=== PATIENT | male | born 2000 | race Caucasian/White ===

== ENCOUNTER 2023-12-26 06:36 | Emergency (ER) | payer OTHER, SELFPAY ==
[2023-12-26 06:38] VITALS: BP 148/95
[2023-12-26 07:30] VITALS: BP 133/87
[2023-12-26] MEDS: ZOFRAN 4 MG IV (07:50)
[2023-12-26] MEDS: TORADOL 30 MG IV (07:50)
[2023-12-26] MEDS: NSS 1000 IV (07:51)
--- NOTE | 2023-12-26 07:55 | ED.GENMED ---
History of Present Illness
General
Chief Complaint: Male Genito-Urinary Symptoms
Source: patient
Time Seen by Provider: 12/26/23 07:03
History of Present Illness
History of Present Illness:
23-year-old male with no significant past medical history presenting to the emergency department for evaluation after awakening around 4 AM and noticed he was having some pain in the left lower part of his groin going into the left testicle,
accompanied with multiple episodes of vomiting (patient estimates about 5), persistent nausea but no other symptoms. Patient states the pain is mildly improved, took 1 dose of Advil with some relief. Denies any fevers/chills or rigors, urinary
frequency/urgency/dysuria/hematuria. Denies any history of similar. Patient's mother notes that she has a significant history for kidney stones. Patient denies ever being sexually active and has no concern for STI. Denies any urethral discharge,
testicular edema or erythema.
Past History
Past History
ED Past Medical History: None
ED Past Surgical History: None
Social History
Tobacco: Non-smoker
Alcohol: None
Drug: None
Personal: Single
Living: with family
Review of Systems
Review of Systems
All Other Systems: ROS reviewed and negative except as documented in HPI and ROS
Phy Exam
Physical Exam
Physical Exam:
GENERAL: Alert , in no apparent distress
EYE: clear conjunctiva b/l
HEAD: NCAT
ENT: mmm.
ABDOMEN: Soft, without focal tenderness, no r/g, no cvat, negative Camargo sign, no tenderness at McBurney's point
GENITOURINARY: no testicular edema, erythema, tenderness. no hernia. no epidydimal ttp, (+)cremasteric reflex b/l, no lesions/sores
NEUROLOGICAL: Alert and oriented
SKIN: Warm and dry, skin intact.
MUSCULOSKELETAL: No edema, well perfused.
PSYCH: Normal and appropriate interaction.
Scores
Heart Failure Risk
Heart Failure Risk Score: Not Applicable
Heart Score for Chest Pain Patients
STEMI patient?: Not applicable
Withdrawal Assessment of Alcohol
Withdrawal Assessment Completed?: Not applicable
Course
Orders/Labs/Results
Orders:
Orders
12/26/23 07:34
CT Abd/pel Without Iv Or Oral Urgent
Comment:
Reason For Exam: left lower abd/testicular pain
0.9% Sodium Chloride 1000 ml [Nss] 1,000 ml IV BOLUS
Ketorolac [Toradol] 30 mg IV NOW STA
Ondansetron Injectable [Zofran] 4 mg IV NOW STA
12/26/23 07:45
CMP [Comprehensive Metabolic Panel] Urgent
Complete Blood Count/With Diff Urgent
Urinalysis Reflex To Culture Urgent
Date Specimen was Collected: 12/26/23
Time Specimen was Collected: 07:43
Urine Microscopic Reflex Cult Urgent
Chlamydia/GC by PCR Urgent
MARVIN Source: Urine
Specimen Description:
Source:: URINE
Date Specimen was Collected: 12/26/23
Time Specimen was Collected: 07:43
Abnormal Lab Results
12/26/23
07:45
WBC 14.5 H 10^3/uL
(4.8-10.8)
MCV 79.2 L fL
(80.0-94.0)
Abs Immat Gran (auto) 0.1 H 10^3/uL
(0-0.05)
Absolute Neuts (auto) 12.0 H 10^3/uL
(1.4-6.5)
Absolute Monos (auto) 0.8 H 10^3/uL
(0.1-0.6)
Immature Gran % 0.6 H %
(0-0.5)
Neutrophils % 82.4 H %
(42.2-75.2)
Lymphocytes % 10.5 L %
(20.5-51.1)
Glucose 141 H mg/dl
(70-99)
Urine Ketones Trace A
(Negative)
Ur Occult Blood Reflex 4+ A
(Negative)
Leukocyte Esterase Rfl Trace A
(Negative)
Urine RBC 50-60 A /HPF
(0-2)
12/26/23 07:45
12/26/23 07:45
Vital Signs
Initial and Last Documented VS:
Initial Vital Signs
Temp Pulse Resp BP Pulse Ox
97.9 F 70 17 148/95 99
12/26/23 06:38 12/26/23 06:38 12/26/23 06:38 12/26/23 06:38 12/26/23 06:38
Last Documented Vital Signs
Temp Pulse Resp BP Pulse Ox
97.9 F 68 14 106/57 98
12/26/23 06:38 12/26/23 08:15 12/26/23 08:15 12/26/23 09:00 12/26/23 09:30
MDM/Problems Addressed
Differential Diagnosis Includes:
renal/ureteral colic, less concern for UTI/testicular torsion/epidydimitis
MDM/Problems Addressed:
23-year-old male present emergency department for sudden onset pain in the left groin accompanied with nausea and vomiting. Pain and nausea somewhat improved although still present. Exam seems to be most consistent with a renal/ureteral colic.
Considered torsion/epididymitis however based off exam I am less concerned for this as a diagnosis. Will order CT scan to further evaluate. Toradol, Zofran and IV fluids ordered for symptomatic relief. Reassessment following
*Radiology
Radiology exam reviewed: radiology read reviewed
*Pulse Oximetry
Patient hypoxic: no
*Critical Care Note
Total Time (30-74mins, 75-104mins- exclusive of procedures): Not Applicable
Patient Management
Escalation/DeEscalation of care consider admission/obs:
Patient CT scan shows a 3mm proximal left ureteral stone with minimal hydronephrosis. Incidental finding of possible fecal impaction/stercoral colitis. Patient with no bowel related concerns. advised stool softener if needed. Flomax, NSAIDs, and
zofran Rx prescribed. Will f/u with urology. Aware of return precautions to the ER
ED Attending Note
-
Portions of this chart may have been created with voice recognition software.� Occasional wrong word or��sound alike� substitutions may have occurred due to the inherent limitations of voice recognition software.
Discharge Plan
Departure
Patient Disposition: Home (Routine Discharge)
Date of Disposition: 12/26/23
Time of Disposition: :
Patient with high blood pressure during this ER visit?: Yes
Discharge Problem:
Ureterolithiasis
Instructions: Kidney Stone, Adult ED
Prescriptions:
New
tamsulosin [Flomax] 0.4 mg capsule
0.4 mg PO DAILY Qty: 10 0RF
naproxen 500 mg tablet
500 mg PO BID PRN (Reason: Pain) Qty: 15 0RF
ondansetron 4 mg tablet,disintegrating
4 mg PO TIDPRN PRN (Reason: nausea/vomiting) Qty: 9 0RF
Referrals:
Shen Carvajal MD [Active] -
Interventions
Interventions:
*Risk Screen - Suicide Last Done: 12/26/23 06:38
*General Assessment Last Done: 12/26/23 06:38
*Neglect/Abuse Screening Last Done: 12/26/23 06:38
ED- Fall Risk Assessment Last Done: 12/26/23 07:30
*ED COVID-19 Vaccine History Last Done: 12/26/23 06:38
*Nursing Disposition Last Done: 12/26/23 09:43
ED-Male Genitourinary Assessment Last Done: 12/26/23 07:30
Discharge Date and Time
Discharge Date/Time: 12/26/23 09:44
Print Language: SLOVENIAN
[2023-12-26 07:57] LABS: % Basophils 0.3 % (0-2); % Eosinophils 0.5 % (0-6); % Immature Granulocytes 0.6 % (0-0.5); % Lymphocytes 10.5 % (20.5-51.1); % Monocytes 5.7 % (1.7-9.3); % Neutrophils 82.4 % (42.2-75.2); Absolute Eosinophils 0.1 10^3/uL (0-0.7); Absolute Immature Granulocytes 0.1 10^3/uL (0-0.05); Absolute Lymphocytes 1.5 10^3/uL (1.2-3.4); Absolute Monocytes 0.8 10^3/uL (0.1-0.6); Hematocrit 41.6 % (39.0-52.0); Hemoglobin 14.4 g/dL (13.0-18.0); Mean Corp Hgb Conc. 34.6 g/dL (33.0-37.0); Mean Corpuscular Hgb 27.4 pg (27.0-31.0); Mean Corpuscular Volume 79.2 fL (80.0-94.0); Nucleated Red Blood Cells % 0 % (-); Platelet Count 337 10^3/uL (130-400); Red Blood Cell Count 5.25 10^6/uL (4.70-6.10); Red Cell Dist. Width 12.8 % (11.5-14.5); White Blood Cell Count 14.5 10^3/uL (4.8-10.8)
[2023-12-26 08:12] VITALS: BP 121/63
[2023-12-26 08:12] LABS: ALT (SGPT) 45 U/L (0-50); AST (SGOT) 32 U/L (17-59); Albumin 4.8 g/dl (3.5-5.0); Alkaline Phosphatase 83 U/L (38-126); Blood Urea Nitrogen 15 mg/dl (9-20); Calcium 10.2 mg/dl (8.4-10.2); Carbon Dioxide 26 mmol/L (22-30); Chloride 102 mmol/L (98-107); Glucose 141 mg/dl (70-99); Potassium 4.1 mmol/L (3.5-5.1); Sodium 141 mmol/L (135-145); Total Bilirubin 0.8 mg/dl (0.2-1.3); Total Protein 7.4 g/dl (6.3-8.2); eGFR > 60.00
[2023-12-26 08:15] VITALS: BP 121/63
[2023-12-26 09:00] VITALS: BP 106/57
[2023-12-26 09:03] LABS: Urine Albumin Trace (Neg - Trace); Urine Bilirubin Negative (Negative); Urine Character Very Cloudy (Clear); Urine Color Yellow; Urine Glucose Negative (Negative); Urine Ketone Trace (Negative); Urine Leukocyte Trace (Negative); Urine Nitrite Negative (Negative); Urine Occult Blood 4+ (Negative); Urine Urobilinogen Negative (Neg - 1+)
[2023-12-26 09:24] LABS: Urine Red Blood Cell 50-60 /HPF (0-2)
== END 2023-12-26 09:44 | disposition home or self-care (01) ==
LOC: EMR 06:36
PROVIDERS: Physician Assistant Medical; EMERGENCY PHYSICIAN Emergency Medicine; FAMILY PHYSICIAN Pediatrics
DX: N13.2 Hydronephrosis with renal and ureteral calculous obstruction (principal)
CPT/HCPCS: 99284; 96374; 96375; 96361; 74176; 80053; 81003; 81015; 85025; 87491; 87591